=== PATIENT | female | born 1965 | race African-American/Black ===

== ENCOUNTER 2021-02-15 15:58 | Outpatient (CLI) | payer OTHER | END 2021-02-15 15:59 | disposition home or self-care (01) | LOC: CSHRAD 15:58 | PROVIDERS: ATTEND Chiropractor | DX: M19.90 Unspecified osteoarthritis, unspecified site (principal) ==

== ENCOUNTER 2022-05-14 13:37 | Emergency (ER) | payer OTHER ==
[2022-05-14] MEDS ORDERED: Lidocaine 1% PF 5 ML VIAL ONE (14:09)
[2022-05-14] MEDS ORDERED: Boostrix 0.5 ML (Tdap) VIAL (>/=7 yrs of age) ONE (14:10)
[2022-05-14] MEDS ORDERED: Triple Antibiotic Oint 1 GM Packet ONE (15:18)
== END 2022-05-14 15:33 | disposition home or self-care (01) ==
LOC: CSHERS 13:37
DX: S61.432A Puncture wound without foreign body of left hand, initial encounter (principal); Z23 Encounter for immunization; W45.8XXA Other foreign body or object entering through skin, initial encounter
CPT/HCPCS: 10120; 90471; 90715